=== PATIENT | female | born 2000 | race Two or more races ===

== ENCOUNTER 2025-01-23 04:31 | Emergency (ER) | payer MEDICAID, SELFPAY ==
[2025-01-23 04:38] VITALS: BP 146/91; PULSE 115; RESP 19; TEMP 36.8; O2SAT 95; BMI 37.5
[2025-01-23 04:46] VITALS: BMI 26.5
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
== END 2025-01-23 06:36 ==
PROVIDERS: Emergency Provider Student in an Organized Health Care Education/Training Program
DX: Z02.89 Encounter for other administrative examinations (principal); M54.2 Cervicalgia
CPT/HCPCS: 72125; 99284

== ENCOUNTER 2025-08-02 16:54 | Emergency (ER) | payer MEDICAID, SELFPAY ==
[2025-08-02 16:55] VITALS: BMI 39.6
[2025-08-02 17:11] VITALS: BP 131/82; PULSE 76; RESP 18; TEMP 36.6; O2SAT 99
--- NOTE | 2025-08-02 17:16 | EDRME_ITS ---
Rapid Medical Screening Exam [facility] Arrival date/time: 08/02/25 16:54 25-year-old female with no known medical history presents to the emergency room with a chief complaint of vaginal bleeding. Patient is currently 6 weeks she is a G6, P4. I have greeted and performed a focused initial assessment of this patient. A comprehensive ED assessment and evaluation of the patient, analysis of all test results, and completion of the medical decision making process will be conducted by additional ED providers. Chief Complaint: Vaginal Bleeding Time Seen by Provider: 08/02/25 17:14 Vital signs: Vital Signs Temperature 97.8 F 08/02/25 17:11 Pulse Rate 76 08/02/25 17:11 Respiratory Rate 18 08/02/25 17:11 Blood Pressure 131/82 H 08/02/25 17:11 Pulse Oximetry (%) 99 08/02/25 17:11 Oxygen Delivery Method Room Air 08/02/25 17:11 Vital signs reviewed by provider: Yes Exam: Bilateral tenderness to the lower abdomen Clear bilateral lung sounds Clinical Impression: Threatened /vaginal bleeding/subchorionic hemorrhage
--- NOTE | 2025-08-02 17:16 | XR_ITS ---
Examination: Complete OB ultrasound, less than 14 weeks, transabdominal Date and time of exam: August 02, 2025, 0620 hours INDICATIONS: Heavy vaginal bleeding and cramping onset today Technique: Obstetrical ultrasound images less than 14 weeks performed via transabdominal imaging Findings: Uterus 9.2 cm endometrial stripe 0.4 cm No uterine mass or intrauterine gestation Right ovary 3.2 cm arterial flow Left ovary 2.5 cm arterial flow No fluid in the cul-de-sac Impression: No uterine mass or intrauterine gestation.
[2025-08-02 17:58] LABS: Basophils # (Auto) 0.0 Thou/mm3 (0.0-0.2); Basophils % (Auto) 1 % (0-2.5); Eosinophils # (Auto) 0.1 Thou/mm3 (0.0-0.5); Eosinophils % (Auto) 1 % (0-10); Hematocrit 35.4 % (36.0-46.0); Hemoglobin 11.3 g/dL (12.0-16.0); Immature Granulocytes Auto 0.01 Thou/mm3 (0.00-0.00); Lymphocytes # (Auto) 1.6 Thou/mm3 (1.0-4.8); Lymphocytes % (Auto) 29 % (10-50); Mean Corpuscular HGB Conc 31.9 g/dl (31.0-37.0); Mean Corpuscular Hemoglobin 25.9 pg (25.0-35.0); Mean Corpuscular Volume 81 fL (80-100); Monocytes # (Auto) 0.3 Thou/mm3 (0.0-0.8); Monocytes % (Auto) 6 % (0-12); Neutrophils # (Auto) 3.4 Thou/mm3 (1.8-7.7); Neutrophils % (Auto) 63 % (37-80); Nucleated Red Blood Cell # 0.00 Thou/mm3 (0.00-0.00); Nucleated Red Blood Cell % 0 /100 WBC (0); Platelet Count 259 Thou/mm3 (140-440); RDW Standard Deviation 43.3 fL (36.4-46.3); Red Blood Count 4.36 Miln/mm3 (4.00-5.20); White Blood Count 5.4 Thou/mm3 (3.6-11.0)
[2025-08-02 18:16] LABS: Alanine Aminotransferase 14 U/L (10-49); Albumin, Serum 4.8 gm/dL (3.5-5.0); Albumin/Globulin Ratio 2.2 (1.2-2.2); Alkaline Phosphatase 65 U/L (46-116); Anion Gap 9 (7-16); Aspartate Amino Transferase 14 U/L (0-34); BUN/Creatinine Ratio 12 Ratio (12-20); Beta HCG,Quantitative 264 mIU/mL (<5.0); Bilirubin,Total 0.2 mg/dL (0.3-1.2); Blood Urea Nitrogen 7 mg/dL (9-23); Calcium 9.1 mg/dL (8.3-10.6); Calcium (Corrected) 9.1 mg/dL (8.5-10.1); Carbon Dioxide 24.3 mMol/L (20.0-31.0); Chloride 107 mMol/L (98-107); Creatinine (Component) 0.6 mg/dL (0.6-1.3); Estimated Creatinine Clearance 151.1 mL/min (>60); Globulin 2.2 gm/dL (2.3-3.5); Glucose 101 mg/dL (74-106); Osmolality,Calculated 277 (275-295); Potassium 4.1 mMol/L (3.4-5.1); Sodium 140 mMol/L (136-145); Total Protein 7.0 gm/dL (5.7-8.2); eGFR > 60 See Note
[2025-08-02 18:21] LABS: Collection Type, Urine Clean Catch
[2025-08-02 18:50] LABS: Bilirubin,Urine Negative (Negative); Blood,Urine 3+ (Negative); Clarity,Urine Clear (Clear/Hazy); Color,Urine Lt-Yellow (Lt Yel-Yel); Glucose, Urine Negative (Negative); Ketones,Urine Negative (Negative); Leukocyte Esterase,Urine Positive (Negative); Nitrite,Urine Negative (Negative); PH,Urine 6.5 (5.0-7.0); Protein,Urine Trace (Neg - Trace); RBC,Urine 38 /hpf (0-3); Specific Gravity,Urine 1.018 (1.001-1.035); Squamous Epithelial Cell,Urine 3 /hpf (0-5); Urobilinogen,Urine Negative mg/dL (0.0-1.0); WBC,Urine 7 /hpf (0-5)
--- NOTE | 2025-08-02 19:24 | EDNOTE_ITS ---
ED OB Contraction Preg RMI/HPI General Chief complaint: Vaginal Bleeding Stated complaint: W/BLEEDING & CRAMPING Time Seen by Provider: 08/02/25 17:14 Arrival date/time: 08/02/25 16:54 25-year-old female patient 6 para 4 1 about 6 weeks , came in for evaluation regarding vaginal bleeding with blood clots and pelvic cramping. Onset of symptoms few hours prior to ER visit. Patient has been having vaginal spotting for the last few days. Denies any other complaints have not seen any SOLUTION STRATEGIST for checkup. RME / HPI RME / HPI Narrative: 08/02/25 16:54 25-year-old female with no known medical history presents to the emergency room with a chief complaint of vaginal bleeding. Patient is currently 6 weeks she is a G6, P4. I have greeted and performed a focused initial assessment of this patient. A comprehensive ED assessment and evaluation of the patient, analysis of all test results, and completion of the medical decision making process will be conducted by additional ED providers. Exam: Bilateral tenderness to the lower abdomen Clear bilateral lung sounds Impression: Threatened /vaginal bleeding/subchorionic hemorrhage Related Data Home Medications ?Medication ?Instructions ?Recorded ?Confirmed prenat.vits,angeles,jjl-qcjw-jchmg 1 tab PO QDAY 03/14/24 03/14/24 Previous Rx's ?Medication ?Instructions ?Recorded acetaminophen 500 mg tablet 500 mg PO Q6H PRN pain #14 tabs 01/23/25 Allergies Allergy/AdvReac Type Severity Reaction Status Date / Time No Known Allergies Allergy Verified 08/02/25 16:58 Review of Systems Review of Systems Narrative Review of Systems: Review of system reviewed and within normal limits except mentioned in HPI ED Exam Narrative Physical exam: VITAL SIGNS: Reviewed. GENERAL APPEARANCE: Alert and interactive, follows commands, no acute distress, HEAD AND FACE: Non-traumatic. ENT: PERRL, pink conjunctivitis, eyelid no trauma, Mucous membrane moist. NECK: Supple, nontender, no nuchal rigidity. CHEST: No tenderness, no crepitus, no paradoxical movement, no retractions. LUNGS: Clear, well ventilated, symmetric, no rales, no wheezing, no ronchi, no stridor, good breath sounds bilaterally. HEART: Regular rate, regular rhythm, no murmur, no gallops. ABDOMEN: Soft, positive bowel sounds, nondistended, no guarding, nontender, no rebound, no masses, RECTAL: Deferred. GENITAL: Deferred. NEUROLOGICAL: Gross motor function intact sensory function intact, Appropriate for age. MUSCULOSKELETAL: low back nontender, full range of motion. EXTREMITIES: Nontender, full range of motion. SKIN: Color pink, dry, no rash, no lacerations, no abrasions, no contusions. LYMPHATICS: Deferred. Course Quality Measures none Orders Category Date Time Status US OB <= 14 weeks fetus Stat Exams 08/02/25 17:16 Taken ABO/RH Type Stat Lab 08/02/25 17:32 Completed Beta HCG,Quantitative Stat Lab 08/02/25 17:32 Completed CBC Stat Lab 08/02/25 17:32 Completed CMP [Comprehensive Metabolic Panel] Stat Lab 08/02/25 17:32 Completed UA [Urinalysis] Stat Lab 08/02/25 17:51 Completed Vital Signs Vital signs: Vital Signs Temperature 97.8 F 08/02/25 17:11 Pulse Rate 76 08/02/25 17:11 Respiratory Rate 18 08/02/25 17:11 Blood Pressure 131/82 H 08/02/25 17:11 Pulse Oximetry (%) 99 08/02/25 17:11 Oxygen Delivery Method Room Air 08/02/25 17:11 Vaginal Bleeding MDM Narrative MDM Narrative: 08/02/25 16:54 25-year-old female patient 6 para 4 1 about 6 weeks , came in for evaluation regarding vaginal bleeding with blood clots and pelvic cramping. Onset of symptoms few hours prior to ER visit. Patient has been having vaginal spotting for the last few days. Denies any other complaints have not seen any SOLUTION STRATEGIST for checkup. Patient's workup is significant for a hCG of 265, ultrasound did not show any IUP no abnormality noted. Results discussed with the patient patient is probably having completed . I advised the patient to repeat the hCG in 3 days. Come to the emergency room for the repeat hCG. Patient stable for discharge home. Patient data External records reviewed:: None Clinical information provided by:: none Social determinants that could affect healthcare access:: none Patient has the following chronic illnesses:: None How is presenting disease/condition affected by chronic disease/condition?: no chronic disease Evaluation data The following diagnostics were reviewed and interpreted by me:: lab results and radiology exam(s) Lab and/or radiology exams considered but not ordered:: None Interpretation Summary: See above Medications / Prescriptions Medications or Prescriptions considered but not ordered:: None none Medication administrations:: None Consultations Consultation(s) initiated? (list below): No Diagnosis Vaginal Bleeding Differential Diagnosis: missed , threatened and incomplete Most likely diagnosis given after review of the tests above:: Threatened , 6 weeks Admission Indicated Admission indicated?: not indicated Admission Request Was there a request for admission?: No Disposition Plan Disposition Plan: Discharge Discharge Attestation Discharge Attestation: The patient was given an opportunity to ask questions and understood the discharge instructions. Discharge instructions specifically effects, indications for sooner follow up or return to the emergency department, and the expected course of current diagnosis. Patient condition: Stable Discharge Plan Plan Patient Disposition: HOME (Self Care) Discharge Disposition comment: Stable Prescriptions/Referrals Prescriptions/Med Rec: No Action Vitamin Tablet 1 tab PO QDAY acetaminophen 500 mg tablet 500 mg PO Q6H PRN (Reason: pain) Qty: 14 0RF Referrals: Ankush Boston MD [Primary Care Provider, Family Practice] - In 1 week Problem List Clinical Impression: Vaginal bleeding, Threatened Patient/Caregiver Discharge Instructions Education Materials: ED Possible Miscarriage ... Additional Instructions: Thank you for the opportunity for serving you today. You are stable for discharged . You are advised to: Follow-up with your SOLUTION STRATEGIST in 1 to 2 days Return to ED for worsening of symptoms Increase oral fluids Pelvic rest no sex for 1 week or until cleared by SOLUTION STRATEGIST Return to emergency room in 3 days for repeat hCG Print Language: Angolan Stand Alone Forms: Daphnie Award Info., Patient Portal Info Letter JAGRUTI/SASHA Supervising Physician JAGRUTI/SASHA Supervising Physician: MD Lana
[2025-08-02 19:32] VITALS: BP 139/97; PULSE 98; RESP 18; TEMP 36.7; O2SAT 98
== END 2025-08-02 19:33 | disposition home or self-care (01) ==
PROVIDERS: Nurse Practitioner Family; Emergency Provider Family Medicine; PCP Family Medicine
DX: O20.0 Threatened abortion (principal); Z3A.01 Less than 8 weeks gestation of pregnancy
CPT/HCPCS: 36415; 76801; 80053; 81001; 84702; 85025; 86900; 86901; 99283

== ENCOUNTER 2025-08-05 11:50 | Emergency (ER) | payer MEDICAID, SELFPAY ==
[2025-08-05 12:05] VITALS: BP 135/94; PULSE 97; RESP 19; TEMP 36.7; O2SAT 96
--- NOTE | 2025-08-05 12:08 | EDNOTE_ITS ---
ED General RME/HPI General Chief complaint: General Adult/Misc Complain Stated complaint: RETURNED INST FOR HCG; HAVING MISCARRIAGE Time Seen by Provider: 08/05/25 12:07 Source: patient Arrival date/time: CC: Vaginal bleeding miscarriage HPI patient with threatened miscarriage was told to return today after 3 days. Patient 1 passed a single clot 24 hours ago, has had very mild low center abdominal cramping. Denies nausea vomiting fever chills headache shortness of breath difficulty breathing. Related Data Home Medications ?Medication ?Instructions ?Recorded ?Confirmed prenat.vits,angeles,jtn-qifc-bwwuc 1 tab PO QDAY 03/14/24 03/14/24 Previous Rx's ?Medication ?Instructions ?Recorded acetaminophen 500 mg tablet 500 mg PO Q6H PRN pain #14 tabs 01/23/25 Allergies Allergy/AdvReac Type Severity Reaction Status Date / Time No Known Allergies Allergy Verified 08/05/25 11:52 Review of Systems Review of Systems Narrative Review of Systems: GEN: No fever, no chills, no weight loss EYES: No discharge, no visual changes, no pain HEENT: No ear pain, no congestion, no sore throat PULM: No shortness of breath, no cough, no congestion CV: No chest pain, no dyspnea on exertion, no palpitations GI: No nausea, no vomiting, no diarrhea, no pain, no constipation : No frequency, no urgency, no dysuria MUSC/SKEL: No joint pain, no back pain SKIN: No rash PSYCH: No hallucinations, no depression HEME/LYMPH: No easy bleeding or bruising tendencies NEURO: No weakness, no headache Past Medical History Past Medical History NEUROLOGIC: Positive Migraine CARDIAC: Negative Cardiac Disorders or Congestive Heart Failure RESPIRATORY: Negative Chronic Obstructive Pulmonary Disease (COPD), Asthma or Sleep Apnea GASTROINTESTINAL: Positive Gastrointestinal Disorders and Gall Bladder Disease (gallstones); Negative Hemorrhoids or Gastroesophageal Reflux Disease GENITOURINARY: Negative Renal Disease or Kidney Stones REPRODUCTIVE: Positive Previous Pregnancies (currently with third child); Negative Endometriosis or Pelvic Inflammatory Disease MUSCULOSKELETAL: Negative Musculoskeletal Disorders, Arthritis or Fractures ENDOCRINE: Negative Diabetes Mellitus Type 1, Diabetes Mellitus Type 2 or Hyperthyroidism HEMATOLOGIC: Negative Blood Disorders or Sickle Cell Disease OTHER HISTORY: Positive Blood Transfusions; Negative Blood Transfusion Reaction, Anesthesia Reactions, MRSA, Vancomycin- Resistant Enterococci, Clostridium Difficile or Cancer Family History FAMILY HISTORY: Positive Family Cardiac Disorders (grandfather); Negative Family Psychiatric Problems or Family Respiratory Disorders Surgical History SURGICAL: Positive Section Social History SMOKING STATUS: Never smoker SECOND HAND EXPOSURE: No ED Exam Narrative Physical exam: [General: Obese not in cot no acute distress Head normocephalic HEENT: Within acceptable limits Neck is supple nontender Chest equal chest rise nontender to palpation Respiratory: Clear to auscultation no wheezes crackles or rubs CV: Rate rhythm is regular no murmurs rubs or clicks Abdomen is distended secondary to body habitus soft nontender no masses positive bowel sounds all 4 quadrants Back: No CVA tenderness no spinous process tenderness from cervical spine thora cic and lumbar spine Skin: Intact no petechiae rash induration ulceration or crepitus Extremities: Moving all extremity against resistance cap refill less than 2 seconds neurosensory intact Neuro: Awake alert oriented x3 Glascow coma 15 no focal deficits] Course Quality Measures none Orders Category Date Time Status US OB <= 14 weeks fetus Stat Exams 08/05/25 12:11 Completed Beta HCG,Quantitative Stat Lab 08/05/25 12:39 Completed CBC Stat Lab 08/05/25 12:39 Completed Vital Signs Vital signs: Vital Signs Temperature 98.0 F 08/05/25 12:05 Pulse Rate 97 08/05/25 12:05 Respiratory Rate 19 08/05/25 12:05 Blood Pressure 135/94 H 08/05/25 12:05 Pulse Oximetry (%) 96 08/05/25 12:05 Oxygen Delivery Method Room Air 08/05/25 12:05 Discharge Plan Plan Patient Disposition: HOME (Self Care) Prescriptions/Referrals Prescriptions/Med Rec: No Action Vitamin Tablet 1 tab PO QDAY acetaminophen 500 mg tablet 500 mg PO Q6H PRN (Reason: pain) Qty: 14 0RF Problem List Clinical Impression: Complete miscarriage Patient/Caregiver Discharge Instructions Other Activity Instructions:: Quantitative hCG is at 274 and needs to drop to 0. Ultrasound shows there is no retained products in your uterus. Follow-up in 1 week with your primary care doctor or in the emergency room to recheck the quantitative hCG or human growth hormone. Education Materials: ED MISCARRIAGE Completed Print Language: Urdu Stand Alone Forms: Daphnie Award Info., Work/School Release, Patient Portal Info Letter PA/CLINICAL COURIER Supervising Physician PA/CLINICAL COURIER Supervising Physician: Jose MCDONALD Clinical Information Provided by: patient Medical Records reviewed [facility] Meds/Rx considered, not ordered None Labs/Rad/Tests considered, not ordered None Chronic Illness/Social Conditions which may negatively complicate care or outcome(s)-explain: None or not applicable EKG EKG not done Labs Labs: interpreted by me Lab(s) Interpretation(s): CBC shows a mild and stable anemia of with a hemoglobin of 10.9 and hematocrit of 33.4 no leukocytosis no thrombocytopenia. Quantitative 8 Imaging Imaging interpretation: interpreted by me Imaging Interpretation(s): Ultrasound shows no retained products.
[2025-08-05 12:10] VITALS: BMI 29.9
--- NOTE | 2025-08-05 12:11 | XR_ITS ---
Examination: Complete OB ultrasound, less than 14 weeks, transabdominal Date and time of exam: August 05, 2025, 1225 hours INDICATIONS: Status post miscarriage 3 days ago Technique: Obstetrical ultrasound images less than 14 weeks performed via transabdominal imaging Findings: Uterus 10.4 cm no intrauterine gestation Minimal fluid in the endometrium Endometrial stripe 0.4 cm no retained products Right ovary 3.0 cm arterial flow Left ovary 3.1 cm arterial flow No fluid in the cul-de-sac IMPRESSION: Negative for retained products of conception
[2025-08-05 12:49] LABS: Basophils # (Auto) 0.0 Thou/mm3 (0.0-0.2); Basophils % (Auto) 1 % (0-2.5); Eosinophils # (Auto) 0.1 Thou/mm3 (0.0-0.5); Eosinophils % (Auto) 2 % (0-10); Hematocrit 33.4 % (36.0-46.0); Hemoglobin 10.9 g/dL (12.0-16.0); Immature Granulocytes Auto 0.01 Thou/mm3 (0.00-0.00); Lymphocytes # (Auto) 1.6 Thou/mm3 (1.0-4.8); Lymphocytes % (Auto) 37 % (10-50); Mean Corpuscular HGB Conc 32.6 g/dl (31.0-37.0); Mean Corpuscular Hemoglobin 26.6 pg (25.0-35.0); Mean Corpuscular Volume 82 fL (80-100); Monocytes # (Auto) 0.3 Thou/mm3 (0.0-0.8); Monocytes % (Auto) 6 % (0-12); Neutrophils # (Auto) 2.5 Thou/mm3 (1.8-7.7); Neutrophils % (Auto) 55 % (37-80); Nucleated Red Blood Cell # 0.00 Thou/mm3 (0.00-0.00); Nucleated Red Blood Cell % 0 /100 WBC (0); Platelet Count 214 Thou/mm3 (140-440); RDW Standard Deviation 42.7 fL (36.4-46.3); Red Blood Count 4.10 Miln/mm3 (4.00-5.20); White Blood Count 4.5 Thou/mm3 (3.6-11.0)
[2025-08-05 13:05] LABS: Beta HCG,Quantitative 274 mIU/mL (<5.0)
== END 2025-08-05 13:47 | disposition home or self-care (01) ==
LOC: SERX 13:24
PROVIDERS: Registered Nurse General Practice; Emergency Provider Emergency Medicine; PCP Family Medicine
DX: O03.9 Complete or unspecified spontaneous abortion without complication (principal)
CPT/HCPCS: 36415; 76801; 84702; 85025; 99282

== ENCOUNTER 2025-08-12 17:14 | Emergency (ER) | payer MEDICAID, SELFPAY ==
[2025-08-12 17:14] VITALS: BMI 39.3
[2025-08-12 18:35] VITALS: BP 119/80; PULSE 60; RESP 18; TEMP 36.7; O2SAT 100
--- NOTE | 2025-08-12 19:13 | EDNOTE_ITS ---
ED Recheck Abnl Lab Rx-RME/HPI General Chief Complaint: Recheck/Abnormal Lab/Rx Stated Complaint: HCG recheck Time Seen by Provider: 08/12/25 18:31 Arrival date/time: 08/12/25 17:14 25-year-old female who had spontaneous is reporting for repeat beta-hCG levels. Patient states that she has some bleeding still but no pain no fever chills no nausea or vomiting. Patient's last beta Limitations: no limitations Related Data Home Medications ?Medication ?Instructions ?Recorded ?Confirmed prenat.vits,angeles,aua-ryrt-jkzsy 1 tab PO QDAY 03/14/24 03/14/24 Previous Rx's ?Medication ?Instructions ?Recorded acetaminophen 500 mg tablet 500 mg PO Q6H PRN pain #14 tabs 01/23/25 Allergies Allergy/AdvReac Type Severity Reaction Status Date / Time No Known Allergies Allergy Verified 08/12/25 17:16 Review of Systems Constitutional Constitutional: Denies chills and Denies fever(s) ENT Ears, Nose, Mouth, and Throat: Denies vertigo Cardiovascular Cardiovascular: Denies syncope Gastrointestinal Gastrointestinal: Denies abdominal pain, Denies nausea and Denies vomiting Genitourinary Genitourinary: Reports abnormal vaginal bleeding, Denies dysuria, Denies pelvic pain, Denies urinary incontinence and Denies urinary hesitancy Musculoskeletal Musculoskeletal: Denies arthralgias and Denies back pain Integumentary/Breasts Skin/Breast: Denies sores and Denies wounds Neurologic Neurologic: Denies syncope and Denies vertigo Past Medical History Past Medical History NEUROLOGIC: Positive Migraine CARDIAC: Negative Cardiac Disorders or Congestive Heart Failure RESPIRATORY: Negative Chronic Obstructive Pulmonary Disease (COPD), Asthma or Sleep Apnea GASTROINTESTINAL: Positive Gastrointestinal Disorders and Gall Bladder Disease (gallstones); Negative Hemorrhoids or Gastroesophageal Reflux Disease GENITOURINARY: Negative Renal Disease or Kidney Stones REPRODUCTIVE: Positive Previous Pregnancies (currently with third child); Negative Endometriosis or Pelvic Inflammatory Disease MUSCULOSKELETAL: Negative Musculoskeletal Disorders, Arthritis or Fractures ENDOCRINE: Negative Diabetes Mellitus Type 1, Diabetes Mellitus Type 2 or Hyperthyroidism HEMATOLOGIC: Negative Blood Disorders or Sickle Cell Disease OTHER HISTORY: Positive Blood Transfusions; Negative Blood Transfusion Reaction, Anesthesia Reactions, MRSA, Vancomycin- Resistant Enterococci, Clostridium Difficile or Cancer Family History FAMILY HISTORY: Positive Family Cardiac Disorders (grandfather); Negative Family Psychiatric Problems or Family Respiratory Disorders Surgical History SURGICAL: Positive Section Social History SMOKING STATUS: Never smoker SECOND HAND EXPOSURE: No ED Exam General Limitations: Present no limitations General appearance: Present alert and in no apparent distress Chest Chest inspection: Present normal inspection and symmetric chest wall rise Respiratory Respiratory exam: Present normal lung sounds bilaterally Cardiovascular Cardiovascular exam: Present regular rate, normal rhythm and normal heart sounds Abdominal Exam Abdominal exam: Present soft and normal bowel sounds Back Exam Back exam: Present normal inspection and full ROM Neurological Exam Neurological exam: Present alert, oriented X3 and CN II-XII intact Psychiatric Psychiatric exam: Present normal affect and normal mood Skin Skin exam: Present warm, dry, intact and normal color Course Course Course Narrative: 25-year-old female G6, P4 with incomplete spontaneous . Patient had hCGs of 264 on August 02, 274 on August 05 and today 409 however ultrasound indicates no intrauterine gestation and no evidence of ectopic at this time. Patient reports no pain she is afebrile, nontoxic-appearing and only complains of vaginal bleeding. Spoke with Dr Grover who advised that the patient will need to be closely monitored by OB. While an ectopic is not likely it is possible and therefore. Patient is advised to return to the emergency department immediately if she develops fever or severe pain Quality Measures none Orders Category Date Time Status Beta HCG,Quantitative Stat Lab 08/12/25 19:02 Completed Vital Signs Vital signs: Vital Signs Temperature 98.1 F 08/12/25 18:35 Pulse Rate 60 08/12/25 18:35 Respiratory Rate 18 08/12/25 18:35 Blood Pressure 119/80 08/12/25 18:35 Pulse Oximetry (%) 100 08/12/25 18:35 Oxygen Delivery Method Room Air 08/12/25 18:35 Recheck / Abnormal Lab / Rx Patient data External records reviewed:: None Clinical information provided by:: patient Social determinants that could affect healthcare access:: none Patient has the following chronic illnesses:: none How is presenting disease/condition affected by chronic disease/condition?: no chronic disease Evaluation data The following diagnostics were reviewed and interpreted by me:: lab results Lab and/or radiology exams considered but not ordered:: none Interpretation Summary: hCG is elevated to 409 Medications / Prescriptions Medications or Prescriptions considered but not ordered:: None Medication administrations:: None Consultations Consultation(s) initiated? (list below): Yes Diagnosis Recheck Differential Diagnosis: other (Ectopic , missed ) Most likely diagnosis given after review of the tests above:: Missed Admission Indicated Admission indicated?: not indicated Admission Request Was there a request for admission?: No Disposition Plan Disposition Plan: Discharge Discharge Attestation Discharge Attestation: The patient and all family members were given an opportunity to ask questions and understood the discharge instructions. Discharge instructions specifically effects, indications for sooner follow up or return to the emergency department, and the expected course of current diagnosis. Patient condition: Stable Discharge Plan Plan Patient Disposition: HOME (Self Care) Prescriptions/Referrals Prescriptions/Med Rec: No Action Vitamin Tablet 1 tab PO QDAY acetaminophen 500 mg tablet 500 mg PO Q6H PRN (Reason: pain) Qty: 14 0RF Referrals: [facility] ([facility]),Shonna Oden MD [Physician, ACCOUNT EXECUTIVE METALWORKING] - 08/13/25 No Primary/Family,Physician [Primary Care Provider] - In 1 week Problem List Clinical Impression: Missed Patient/Caregiver Discharge Instructions Discharge Activity: activity as tolerated Education Materials: ED Missed Miscarriage Additional Instructions: Please follow-up with Dr Grover's office tomorrow for follow-up visits. If you develop fever or severe pelvic or abdominal pain return to the emergency department immediately Print Language: Turkmen Stand Alone Forms: Daphnie Award Info., Patient Portal Info Letter
[2025-08-12 19:37] LABS: Beta HCG,Quantitative 409 mIU/mL (<5.0)
== END 2025-08-12 21:21 | disposition home or self-care (01) ==
PROVIDERS: Emergency Provider Physician Assistant
DX: O02.1 Missed abortion (principal)
CPT/HCPCS: 36415; 84702; 99282

== ENCOUNTER 2025-08-16 08:21 | Outpatient (AMB) | payer MEDICAID, SELFPAY ==
[2025-08-16 08:44] VITALS: BP 122/79; PULSE 79; RESP 18; TEMP 36.4; O2SAT 99; BMI 40.3
--- NOTE | 2025-08-16 08:44 | AMB.GYNCLNOT ---
Vital Signs 08/16/25 08:44 Height 1.57 m Height Method Stated Weight 99.337 kg Weight Measurement Method Standing Scale BMI 40.3 BP 122/79 Blood Pressure Source Automatic Cuff Blood Pressure Location Right Upper Arm Position Sitting Respiration 18 Pulse 79 Pulse Source Monitor Temp 97.5 F Temp Source Temporal Artery Scan Pulse Oximetry (%) 99 Oxygen Delivery Method Room Air Allergies/Home Meds Allergies & Medications Allergies No Known Allergies Allergy (Verified 08/16/25 08:46) Intake Visit Data Collection New Patient or Established: Established Patient (seen at [facility] within 3 years) Reason for Visit:: ER FOLLOW UP Seen by Clinical Staff ONLY (RN/MA): No 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: No Do You Feel Safe at Home: Yes Authorities Contacted: N/A PCP or OBGYN visit in last 3 months: No Hx Now: No Are you currently on any form of Control: No Last menstrual period: 06/21/25 Pain Present Currently: Yes Pain Location: Abdomen Pain Scale Used: Nash-Goel/Numerical Pain scale:: 6 Smoking Status Smoking Status: Never smoker Immunizations Flu Vaccine in the Last 12 Months: No Flu Vaccine Exclusion Criteria: No Exclusion Criteria 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 Menstrual regularity: regular Flow: normal Monthly: Yes How many days does period last: 5 Age at menarche: 13 Currently sexually active: Yes 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 1. Little interest or pleasure in doing things: not at all 2. Feeling down, depressed, or hopeless: not at all Total score: 0 PHQ-9 3. Trouble falling or staying asleep, or sleeping too much: Not at all 4. Feeling tired or having little energy: Not at all 5. Poor appetite or overeating: Not at all 6. Feeling bad about yourself - or that you are a failure or have let yourself or your family down: Not at all 7. Trouble concentrating on things, such as reading the newspaper or watching television: Not at all 8. Moving or speaking so slowly that other people could have noticed? - Or the opposite - being so fidgety or restless that you have been moving around a lot more than usual: not at all 9. Thoughts that you would be better off or of hurting yourself in some way: Not at all Total score: 0 If you checked off any problems, how difficult have these problems made it for you to do your work, take care of things at home, or get along with other people?: not difficult at all Source: Developed by Drs. Keven Valenzuela, Radha Quiroga, Jerry Cook and colleagues, with an educational chari from [email or web address]. Depression screen completed yes Social History Living Situation History Marital Status: Lives With: Family Housing: Apartment Housing Other:: pt lives with boyfriend and 2 kids Tobacco History Smoking Status: Never smoker Packs per Day: 0.5 Second Hand Smoke Exposure: No Alcohol History Alcohol Intake: Former Alcohol Intake Frequency: holidays/special occasions only Domestic Abuse History Do You Feel Safe at Home: Yes History of Present Illness HPI Narrative Radha Coffman is a 25-year-old presenting for emergency room follow-up after recent findings consistent with missed . She was seen in the emergency room on August 12, 2025, with findings consistent with missed , and had previous ER visits on August 02 and August 05, 2025. 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 She reports that the bleeding has been ongoing but is not heavier than her normal periods. She continues to have nausea symptoms. Medical History: - Emergency room visits on August 02, 2025, August 05, 2025, and August 12, 2025 Obstetric History: - GPAL: G1 T0 L0 - Recent loss consistent with missed , with serial beta-hCG levels showing initial rise followed by plateau Social History: - Currently unemployed Diagnostic Test Results and Labs: - Serum beta-hCG (08-02-2025): 264 - Serum beta-hCG (08-05-2025): 274 - Pelvic ultrasound (08-05-2025): Uterus 10.4 cm, no intrauterine gestation, endometrial stripe 0.4 cm, no evidence of retained products - Serum beta-hCG (08-12-2025): 409 Exam General General Appearance: alert, in no apparent distress and healthy appearing Head Head exam: atraumatic Neck Neck exam: Present normal inspection and trachea midline Chest Chest inspection: Present normal inspection and symmetric chest wall rise External exam: Present normal external exam; Absent tenderness Neuro Neurological exam: Present oriented X3 Psych Psychiatric exam: Present normal affect and normal mood Office Procedures [facility] LOC & Office Proc's Nursing/Assessment Patient Status: Established Patient OB Clinic Nursing Assessment: Medication Reconciliation, Update PMH in EMR and Vital Signs OB Clinic Coordination of Care: Complex Care and Chronic Disease 1-5, Education Complex Pt/Fam, Lab and Imaging orders, Results/Orders obtained and Staff clarify orders Established Patient Charge Established Patient Point Assignment: 105 Established Patient Point Charge: EP Level 3 (80-115) Assessment & Plan Diagnosis / Problem List (1) Incomplete miscarriage with blood clot: Status: Acute Plan Missed with persistent beta-hCG Assessment: Patient presents for follow-up after ER visits on 08/02, 08/05, and 08/12/2025 with findings consistent with missed . Beta-hCG levels show concerning pattern with initial value of 264 on 08/02, rising to 274 on 08/05, and further increasing to 409 on 08/12. Ultrasound on 08/05 demonstrated uterus measuring 10.4 cm with no intrauterine gestation, endometrial stripe of 0.4 cm, and no evidence of retained products. The discordance between clear ultrasound findings and persistently rising hormone levels raises concern for possible molar , though this diagnosis has not been confirmed. Patient continues to experience nausea and light bleeding that is less than a normal menstrual period. Plan: - Obtain serial beta-hCG quantitative level next Tuesday - Follow-up appointment scheduled for Tuesday to review hormone trend results - Prescribe anti-nausea medication for symptomatic relief - Patient education provided regarding warning signs: return to ER for sudden severe pain in ovaries/sides or vomiting/feeling sick - Further management decisions will be based on hormone trend results, with discussion of molar treatment options if levels continue to rise
== END 2025-08-16 09:47 | disposition home or self-care (01) ==
LOC: HODSOBC 08:21
PROVIDERS: Supervising Provider Obstetrics & Gynecology; Visit Provider Obstetrics & Gynecology
DX: O03.2 Embolism following incomplete spontaneous abortion (principal)
CPT/HCPCS: 99213; G0463

== ENCOUNTER 2025-08-19 22:15 | Inpatient (IN) | payer MEDICAID, SELFPAY ==
[2025-08-19 22:18] VITALS: BMI 38.4
[2025-08-19 22:57] VITALS: BP 137/89; PULSE 94; RESP 20; TEMP 36.8; O2SAT 100
--- NOTE | 2025-08-19 23:14 | PD.EDRME ---
Rapid Medical Screening Exam RME Arrival date/time: 08/19/25 22:15 25-year-old female G1A1 history of recent incomplete returns to the ER with complaint of pelvic pain pain Chief Complaint: Abdominal Pain Time Seen by Provider: 08/19/25 22:19 Vital signs: Vital Signs Temperature 98.3 F 08/19/25 22:57 Pulse Rate 94 08/19/25 22:57 Respiratory Rate 20 08/19/25 22:57 Blood Pressure 137/89 H 08/19/25 22:57 Pulse Oximetry (%) 100 08/19/25 22:57 Oxygen Delivery Method Room Air 08/19/25 22:57 Exam: - Clinical Impression: -
[2025-08-19 23:37] LABS: Basophils # (Auto) 0.0 Thou/mm3 (0.0-0.2); Basophils % (Auto) 0 % (0-2.5); Eosinophils # (Auto) 0.1 Thou/mm3 (0.0-0.5); Eosinophils % (Auto) 1 % (0-10); Hematocrit 32.0 % (36.0-46.0); Hemoglobin 10.1 g/dL (12.0-16.0); Immature Granulocytes Auto 0.03 Thou/mm3 (0.00-0.00); Lymphocytes # (Auto) 1.7 Thou/mm3 (1.0-4.8); Lymphocytes % (Auto) 25 % (10-50); Mean Corpuscular HGB Conc 31.6 g/dl (31.0-37.0); Mean Corpuscular Hemoglobin 25.8 pg (25.0-35.0); Mean Corpuscular Volume 82 fL (80-100); Monocytes # (Auto) 0.3 Thou/mm3 (0.0-0.8); Monocytes % (Auto) 4 % (0-12); Neutrophils # (Auto) 4.9 Thou/mm3 (1.8-7.7); Neutrophils % (Auto) 70 % (37-80); Nucleated Red Blood Cell # 0.00 Thou/mm3 (0.00-0.00); Nucleated Red Blood Cell % 0 /100 WBC (0); Platelet Count 229 Thou/mm3 (140-440); RDW Standard Deviation 43.8 fL (36.4-46.3); Red Blood Count 3.91 Miln/mm3 (4.00-5.20); White Blood Count 7.1 Thou/mm3 (3.6-11.0)
[2025-08-19 23:39] LABS: Collection Type, Urine Clean Catch
[2025-08-19 23:51] LABS: Bilirubin,Urine Negative (Negative); Blood,Urine 3+ (Negative); Clarity,Urine Turbid (Clear/Hazy); Culture Indicated,Urine Not Indicated; Glucose, Urine Negative (Negative); Ketones,Urine 1+ (Negative); Leukocyte Esterase,Urine Negative (Negative); Nitrite,Urine Negative (Negative); PH,Urine 5.5 (5.0-7.0); Protein,Urine 1+ (Neg - Trace); RBC,Urine 791 /hpf (0-3); Specific Gravity,Urine 1.033 (1.001-1.035); Squamous Epithelial Cell,Urine 5 /hpf (0-5); Urobilinogen,Urine Negative mg/dL (0.0-1.0); WBC,Urine 3 /hpf (0-5)
[2025-08-19 23:55] LABS: Alanine Aminotransferase 19 U/L (10-49); Albumin, Serum 4.7 gm/dL (3.5-5.0); Albumin/Globulin Ratio 1.7 (1.2-2.2); Alkaline Phosphatase 57 U/L (46-116); Anion Gap 10 (7-16); Aspartate Amino Transferase 16 U/L (0-34); BUN/Creatinine Ratio 20 Ratio (12-20); Beta HCG,Quantitative 576 mIU/mL (<5.0); Bilirubin,Total 0.2 mg/dL (0.3-1.2); Blood Urea Nitrogen 12 mg/dL (9-23); Calcium 9.1 mg/dL (8.3-10.6); Calcium (Corrected) 9.1 mg/dL (8.5-10.1); Carbon Dioxide 24.8 mMol/L (20.0-31.0); Chloride 107 mMol/L (98-107); Creatinine (Component) 0.6 mg/dL (0.6-1.3); Estimated Creatinine Clearance 154.2 mL/min (>60); Globulin 2.8 gm/dL (2.3-3.5); Glucose 108 mg/dL (74-106); Osmolality,Calculated 283 (275-295); Potassium 3.8 mMol/L (3.4-5.1); Sodium 142 mMol/L (136-145); Total Protein 7.5 gm/dL (5.7-8.2); eGFR > 60 See Note
[2025-08-19 23:56] LABS: Color,Urine Orange (Lt Yel-Yel)
[2025-08-20] VITALS (14 sets, daily range): BP systolic 103–148; BP diastolic 63–86; PULSE 10–103; RESP 14–20; TEMP 36.6–37.1; O2SAT 94–100; BMI 38.4
--- NOTE | 2025-08-20 00:11 | EDNOTE_ITS ---
ED Abdominal Pain RME/HPI General Chief Complaint: Abdominal Pain Stated complaint: MISCARAGE TWO WKS AGO ABD PAIN Time seen by provider: 08/19/25 22:19 Arrival date/time: 08/19/25 22:15 RME / HPI RME / HPI narrative: Dr. 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 She has nausea, no emesis. She reports ongoing urgency and frequency. No dysuria. No fever, but has chills. ovarian cystic disease, no DM or HTN. PSH includes c-sections x4. Related Data Allergies Allergy/AdvReac Type Severity Reaction Status Date / Time No Known Allergies Allergy Verified 08/19/25 22:22 Review of Systems Review of Systems Systems Reviewed: All systems reviewed, normal except as documented Past Medical History Past Medical History NEUROLOGIC: Positive Migraine CARDIAC: Negative Cardiac Disorders or Congestive Heart Failure RESPIRATORY: Negative Chronic Obstructive Pulmonary Disease (COPD), Asthma or Sleep Apnea GASTROINTESTINAL: Positive Gastrointestinal Disorders and Gall Bladder Disease (gallstones); Negative Hemorrhoids or Gastroesophageal Reflux Disease GENITOURINARY: Negative Renal Disease or Kidney Stones REPRODUCTIVE: Positive Previous Pregnancies (currently with third child); Negative Endometriosis or Pelvic Inflammatory Disease MUSCULOSKELETAL: Negative Musculoskeletal Disorders, Arthritis or Fractures ENDOCRINE: Negative Diabetes Mellitus Type 1, Diabetes Mellitus Type 2 or Hyperthyroidism HEMATOLOGIC: Negative Blood Disorders or Sickle Cell Disease OTHER HISTORY: Positive Blood Transfusions; Negative Blood Transfusion Reaction, Anesthesia Reactions, MRSA, Vancomycin- Resistant Enterococci, Clostridium Difficile or Cancer Family History FAMILY HISTORY: Positive Family Cardiac Disorders (grandfather); Negative Family Psychiatric Problems or Family Respiratory Disorders Surgical History SURGICAL: Positive Section Social History SMOKING STATUS: Never smoker SECOND HAND EXPOSURE: No ED Exam Narrative Physical exam: GENERAL APPEARANCE: alert and oriented x 4, well-developed, well-nourished, nontoxic, no acute distress VITALS: All vitals were reviewed and the pulse ox is 100% on room air, which is normal according to my interpretation. HEENT: Normocephalic, atraumatic; pupils equal, round, reactive to light; EOMI; mucous membranes pink, moist; oropharynx clear NECK: Supple LUNGS: CTABL; no wheezes, no rales, no rhonchi HEART: Regular rate, regular rhythm; normal S1, S2; no murmurs ABDOMEN: non distended; soft, RLQ pain with focal tenderness and peritoneal findings EXTREMITIES: atraumatic; no edema NEUROLOGIC: awake; alert and oriented x4; cranial nerves II-XII grossly intact; no focal sensory or motor deficits PSYCHIATRIC: appropriate mood and affect SKIN: warm, dry, normal color; no rashes Course Quality Measures none Orders Category Date Time Status Admit to Inpatient Status Routine Admission 08/20/25 06:05 Active US OB transvaginal Stat Exams 08/20/25 00:28 Taken Beta HCG,Quantitative Stat Lab 08/19/25 23:20 Completed CBC Stat Lab 08/19/25 23:20 Completed CMP [Comprehensive Metabolic Panel] Stat Lab 08/19/25 23:20 Completed UA, C/S IF [Urinalysis, C/S if Indicated] Stat Lab 08/19/25 23:32 Completed Acetaminophen Tab [Tylenol Tab] Med 08/20/25 00:23 Discontinued 650 mg PO X1 ONE Morphine* Inj Med 08/20/25 05:05 Discontinued 4 mg IVP X1 ONE Vital Signs Vital signs: Vital Signs Temperature 98.3 F 08/19/25 22:57 Pulse Rate 94 08/19/25 22:57 Respiratory Rate 20 08/19/25 22:57 Blood Pressure 137/89 H 08/19/25 22:57 Pulse Oximetry (%) 100 08/19/25 22:57 Oxygen Delivery Method Room Air 08/19/25 22:57 Abdominal Pain MDM MDM Narrative MDM Narrative:: Scribe Attestation: 08/20/25 - Avril Scott am scribing for and in the presence of Dr. Hawkins. 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 She has nausea, no emesis. Please see PE findings. Lab markers demonstrate CBC and chemistries are unremarkable. HCG continues to rise and is currently at 576. Pelvis US demonstrates a complex left ovarian cyst with small amount of fluid in the pelvis. Patient received incremental doses of narcotic analgesics for pain control. Case was discussed at length with Dr. Aleman, INFECTION PREVENTION SPECIALIST, who agrees to admit the patient for observation. Dx: complex left ovarian cyst with rupture, r/o ectopic Patient data External records reviewed:: [facility] previous records (Per chart review, patient was seen here on 08/12/25 for missed .) Clinical information provided by:: patient Social determinants that could affect healthcare access:: none Patient has the following chronic illnesses:: none How is presenting disease/condition affected by chronic disease/condition?: no chronic disease Evaluation data The following diagnostics were reviewed and interpreted by me:: lab results and radiology exam(s) Lab and/or radiology exams considered but not ordered:: none Interpretation Summary: Telerad Preliminary Report Draft Patient: MAK SHAVER Record#: [id number] Birthdate: 2000 Age/Sex: 25 / F Location: [facility] Attending Dr: Ordering Physician: Date of Service: Procedure(s): Accession Number(s): cc: ~ Pelvic ultrasound (transvaginal). August 20, 2025 0150 hours Clinical history: Rule out ectopic . No prior study is available for comparison. Findings: The uterus is normal in size measuring 8.4 x 4.2 x 3.8 cm. The endometrial stripe measures 3 mm. No intrauterine gestational sac is seen at this time. The right ovary is not visualized. The left ovary measures 4.6 x 3.7 x 3.9 cm and demonstrates a 4.4 x 3.6 x 3.7 cm complex cyst with septations. The left ovary demonstrates color flow and spectral waveforms on Doppler evaluation. A small amount of free fluid is seen in the left adnexa. Impression: No evidence of intrauterine gestation at this time. Possibilities include very early intrauterine , recent or occult ectopic gestation. Recommend correlation with serum beta hCG and follow up. Left ovarian complex cystic lesion. Recommend follow-up. Report Electronically Signed By: Christiano Ochoa 08/20/2025 2:29:38 AM Medications / Prescriptions Medications or Prescriptions considered but not ordered:: none Medication administrations:: Medication Administration History Discontinued Medications Acetaminophen (Acetaminophen 325 Mg Tablet) 650 mg PO X1 ONE Stop: 08/20/25 00:24 Last Admin: 08/20/25 00:52 Dose: 650 mg Documented By: JOSE Morphine Sulfate (Morphine Sulf Inj 4 Mg/Ml Vial) 4 mg IVP X1 ONE Stop: 08/20/25 05:06 Last Admin: 08/20/25 06:09 Dose: 4 mg Documented By: SE see above Consultations Consultation(s) initiated? (list below): Yes Diagnosis Differential diagnosis abdominal pain: other (missed , ectopic , pelvic pain) Most likely diagnosis given after review of the tests above:: see clinical impression below Admission Indicated Admission indicated?: indicated Admission Request Was there a request for admission?: Yes Admission Attestation Admission request attestation: Discussed case with [] from Hospitalist service regarding admission. Discussed patients ED course, exam findings, labs, and radiology results. The Hospitalist [agrees,declines] to accept the patient for admission. Disposition Plan Disposition Plan: Admit Discharge Plan Plan Patient Disposition: Admit Acute Care w/in Hospital Prescriptions/Referrals Referrals: Ankush Boston MD [Primary Care Provider, Family Practice] - In 1 week Problem List Clinical Impression: Complex cyst of left ovary Patient/Caregiver Discharge Instructions Print Language: Ukrainian Stand Alone Forms: Daphnie Award Info., Patient Portal Info Letter
--- NOTE | 2025-08-20 00:28 | XR_ITS ---
Examination: OB Transvaginal ultrasound of the pelvis, complete Technique: Transvaginal sonographic images pelvis performed using richardson scale imaging Exam date and time: August 20, 2025, 0150 hours INDICATIONS: Severe pelvic pain beginning several hours ago FINDINGS: Uterus 8.4 cm endometrial stripe 0.3 cm No uterine mass or intrauterine gestation Right ovary obscured by bowel gas Left ovary 4.6 cm arterial flow, 4.4 x 3.6 x 3.7 cm septated cystic mass with internal echoes left ovary and fluid adjacent to the left ovary IMPRESSION: No intrauterine gestation Septated cystic mass in the left adnexal region with internal echoes, differential would include complex left adnexal cyst, ectopic in the appropriate clinical setting, clinical correlation advised and follow-up recommended.
[2025-08-20] MEDS: ACETAMINOPHEN 325 MG TABLET 650 MG PO (00:52)
--- NOTE | 2025-08-20 02:30 | PRELIM_ITS ---
Pelvic ultrasound (transvaginal). August 20, 2025 0150 hours Clinical history: Rule out ectopic . No prior study is available for comparison. Findings: The uterus is normal in size measuring 8.4 x 4.2 x 3.8 cm. The endometrial stripe measures 3 mm. No intrauterine gestational sac is seen at this time. The right ovary is not visualized. The left ovary measures 4.6 x 3.7 x 3.9 cm and demonstrates a 4.4 x 3.6 x 3.7 cm complex cyst with septations. The left ovary demonstrates color flow and spectral waveforms on Doppler evaluation. A small amount of free fluid is seen in the left adnexa. Impression: No evidence of intrauterine gestation at this time. Possibilities include very early intrauterine , recent or occult ectopic gestation. Recommend correlation with serum beta hCG and follow up. Left ovarian complex cystic lesion. Recommend follow-up. Report Electronically Signed By: Christiano Ochoa 08/20/2025 2:29:38 AM [EST]
[2025-08-20] MEDS: MORPHINE SULF INJ 4 MG/ML VIAL IVP (06:09)
--- NOTE | 2025-08-20 07:46 | PC.NURSE ---
Patient to er with c/o vaginal bleeding x 2 weeks, s/p misscarraige. Patient admitted to ob awaiting bed on floor. Currently, patient denies pain, states, she is only spotting at this time. Patient , skin warm dry and pink. patient has no other needs at this time, call light within reach.
--- NOTE | 2025-08-20 09:06 | PC.NURSE ---
Dr. Grover at bedside consuting with patient regarding procedure.
--- NOTE | 2025-08-20 11:47 | PD.GYNHP ---
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 She has abnormally increasing quantitative hCGs and has had several labs drawn through the [facility] ER. On 08/02/25, the patient's quant was 264, on 08/05/25 it was 274, on 08/12/2025 it was 409, on 08/19/2025 it is 576. The patient was seen by Dr. Zhu in clinic 08/16/2025, and he ordered a repeat quantitative hCG. He was assuming this was a missed miscarriage. Today, the patient is having more pain and and ultrasound reveals some free fluid in her abdomen with some type of complex mass in her left adnexa measuring approximately 4.4 x 3.6 x 3.7 cm. Her hemoglobin is stable at 10.1. As patient is having increasing abdominal pain, now with free fluid in her abdomen, and some type of complex mass near her left adnexa, the decision is made to proceed with laparoscopy, possible unilateral salpingoectomy versus ovarian cystectomy. Possible laparotomy. Patient is consented for the procedure Review of Systems Review of Systems Narrative Review of Systems: Patient reports her LMP was 06/21/2025. Her test was + 07/23/2025 She has been having abnormal bleeding since 08/02/2025. She has had increasing abdominal pain starting last evening about 9 PM. No vomiting. She still has some vaginal bleeding but it is not heavy. No fevers or chills. Past Medical History Past Medical History Comments [facility] COMMENT: The patient denies any chronic medical problems including asthma, diabetes, or hypertension The patient's past surgical history is significant for x 4. Her first was for arrest of dilation. She has a 9-year-old, 4-year-old, a 2-year-old, and a 1-year-old at home. All pregnancies were complicated by hyperemesis and multiple trips to the emergency room. Patient has a history of miscarriage x 1 with a D&C. This is the only time she has been under general anesthesia. Her blood type is O+. Meds Home Medications and Allergies Allergies Allergy/AdvReac Type Severity Reaction Status Date / Time No Known Allergies Allergy Verified 08/19/25 22:22 Exam - SUPERVISOR FRAME SAMPLE AND PATTERN Vital Signs Temp Pulse Resp BP Pulse Ox O2 Del Method 98.5 F 77 16 103/65 98 Room Air 08/20/25 08:10 08/20/25 08:10 08/20/25 08:10 08/20/25 08:10 08/20/25 08:10 08/20/25 08:10 Constitutional Constitutional: mild distress, obese and cooperative Routine Respiratory Exam Respiratory: Present chest non-tender, lungs clear, normal breath sounds and no resp distress Routine Cardiovascular Exam Cardiovascular: Present RRR Routine Abdominal Exam Abdominal: Present soft, normoactive bowel sounds and surgical scars (Well-healed Pfannenstiel scar) Routine Skin Exam Skin: Present intact and dry Routine Psychiatric Exam Psychiatric: Present normal affect and normal thought process SUPERVISOR FRAME SAMPLE AND PATTERN - Results Labs 08/19/25 23:20 08/19/25 23:20 Labs: Short CBC 08/19/25 Range/Units 23:20 WBC 7.1 (3.6-11.0) Thou/mm3 Hgb 10.1 L (12.0-16.0) g/dL Hct 32.0 L (36.0-46.0) % Plt Count 229 (140-440) Thou/mm3 BMP 08/19/25 23:20 Sodium 142 Potassium 3.8 Chloride 107 Carbon Dioxide 24.8 BUN 12 Creatinine 0.6 Glucose 108 H Calcium 9.1 Liver Function 08/19/25 Range/Units 23:20 Total Bilirubin 0.2 L (0.3-1.2) mg/dL AST 16 (0-34) U/L ALT 19 (10-49) U/L Alkaline Phosphatase 57 (46-116) U/L Albumin 4.7 (3.5-5.0) gm/dL Urine 08/19/25 Range/Units 23:32 Urine Color Williams A (Lt Yel-Yel) Urine Clarity Turbid A (Clear/Hazy) Urine pH 5.5 (5.0-7.0) Ur Specific [place] 1.033 (1.001-1.035) Urine Protein 1+ A (Neg - Trace) Urine Glucose (UA) Negative (Negative) Imaging and Cardiology US - abdomen: Status: image reviewed by me (Free fluid in the pelvis. No intrauterine . Complex approximately 4 x 3 cm adnexal mass left adnexa.) Assessment and Plan Assessment and plan (1) Complex cyst of left ovary: Status: Acute (2) Ectopic : Status: Acute Assessment and plan: Patient is having increasing abdominal pain. She now has free fluid in her pelvis. She is consented for laparoscopy, possible unilateral ovarian cystectomy possible unilateral salpingectomy, possible laparotomy. The risks of the procedure discussed patient the ER including the risk of bleeding, infection, blood transfusion, damage to bowel, bladder, blood vessels, or other organs. Laparotomy and prolonged hospital stay should any complications occur. All questions were answered all consents were signed. Additional Assessment & Plan Additional Plan: SCDs in OR. Quality Measures Quality Measures none (2) Ectopic Qualifiers: Location of ectopic : unspecified location Intrauterine status: without intrauterine Qualified Code(s): O00.90 - Unspecified ectopic without intrauterine
--- NOTE | 2025-08-20 14:24 | EVENTNT_ITS ---
Documentation for date of: 08/20/25 Event Note Event Note: Immediate postop note: Preop diagnosis abnormal quantitative hCGs, suspected ectopic , left ovarian cyst Postop diagnosis: Right ectopic , simple left ovarian cyst multiple pelvic adhesions Indication: Patient is a 25-year-old -0-1-4 history of x 4 with abnormally increasing quantitative hCGs and pelvic pain. Patient had some free fluid on ultrasound and a left ovarian cyst. She was consented for a diagnostic laparoscopy possible ovarian cystectomy possible unilateral salpingectomy Findings: Right ectopic with blood extruding from the tube, approximately 30 cc of blood in her pelvis Multiple pelvic adhesions with filmy adhesions around her ovaries. Uterus adhesed to anterior abdominal wall. Multiple omental adhesions. Left fallopian tube with normal-appearing fimbria however with multiple filmy adhesions and wrapped around a simple left ovarian cyst. Procedure: Diagnostic laparoscopy, right cyst salpingectomy, drainage of left ovarian cyst IV fluids 1.5 L Urine output 25 cc EBL 40 cc Anesthesiologist: Dr. Faye Requisition Approver Murphy VELASCO Complications none. Full op report to be dictated Mariela Grover MD
[2025-08-20] MEDS: fentaNYL CIT INJ 50 mCg/ML AMP 2ML IVP (14:41)
--- NOTE | 2025-08-20 15:49 | SUR.PHASEI ---
Addendum entered by Marcelina Fountain RN 08/20/25 15:59: Note entered at 1414 hr entered in error. Time should reflect 1514 hr. Original Note: 1426: Pt received in [facility] via gurney. Report from Elke AYON and Dr. Faye. Oral airway in place. Resp even, unlabored. VS stable. Surgical sites x3 to abdomen secured with dermabond. Areas dry, clean, intact. No swelling, discoloration. No vaginal bleeding. 1430: Oral airway dc'd. Resp even, unlabored. 1441: Pt awake with c/o pain to abdomen. Rates pain level 10/10. Resp even, unlabored. VS stable. Pain medication given per anesthesia order. 1455: Pt resting with no further complaints of pain. Rates pain level 3/10. Resp even, unlabored. VS stable. Surgical sites remain dry, clean, intact. No vaginal bleeding. 1414: Report to Rhianna AYON, 3rd floor. Pt transferred to [facility] in stable condition.
--- NOTE | 2025-08-20 16:11 | ESOP_ITS ---
Operative Note - SAP INTEGRATION ARCHITECT Procedure Date of procedure: 08/20/25 Procedure Performed: Diagnostic laparoscopy, lysis of adhesions, right salpingectomy, drainage of left ovarian cyst Indication: The patient is a 25-year-old -0-1-4 with abnormally rising quantitative hCGs. She has had several trips into the emergency room for repeat quantitative hCGs. She had a quant 08/12/2025 that was 409 and most recently 08/19/2025 it was 576. Ultrasound on this admission revealed free fluid in her pelvis and a complex mass around her left ovary measuring approximately 4.4 x 3.6 x 3.7 cm. She has had increasing pelvic pain this admission. She has a history of C- section x 4. She was consented for a diagnostic laparoscopy possible unilateral ovarian cystectomy possible unilateral salpingectomy for a suspected ectopic . Pre-Op diagnosis: 1. Abnormally rising quantitative hCGs, suspected ectopic 2. Free fluid in the pelvis 3. Increasing abdominal pain 4. Left ovarian cyst on ultrasound 5. Previous x 4 Post-Op diagnosis: Same and nonruptured right ectopic Anesthesia type: General Procedure description: After obtaining informed consent, the patient was brought back to the operating room and general anesthesia administered. She was then prepped and draped in the dorsal lithotomy position using Saul stirrups in a normal sterile fashion. The patient's bladder was emptied with an in and out catheter. The patient was given 2 g of Ancef intravenously by anesthesia. A speculum was then inserted into the patient's vagina and a hulka uterine manipulator inserted. The surgeons gloves were changed and attention was turned to the patient's abdomen where a 5 mm incision was made in her periumbilical fold. A long Veress needle was introduced and correct intra-abdominal placement confirmed via the water drop test. The abdomen was allowed to insufflate with 3 L of CO2 gas. A 5 mm trocar and sleeve were introduced with with a 5 mm camera through the umbilical incision. Correct intra-abdominal placement was visually confirmed. A a 10 mm incision was made in her right her left lower quadrant and a 10 mm trocar and sleeve introduced under direct visualization. A 5 mm incision was made in her right lower quadrant and a 5 mm trocar and sleeve introduced under direct visualization. A blunt probe was placed through one of the instrument ports and pictures taken of the above findings. Of note patient had multiple omental adhesions around her instrument port placements that were not involving bowel. A K[place] irrigation device was placed through one of the instrument ports and the pelvis copious irrigated with normal saline. All blood was removed from the pelvis. Some of the omental adhesions were taken down using an Enseal bipolar electrosurgical instrument. A dense adhesion of the fundus of the uterus to the anterior abdominal wall was also taken down using the Enseal. The uterine cavity was not entered. An atraumatic grasper was placed through the right lower quadrant incision and the fallopian tube elevated at the fimbriated end. The tube was found to be densely adhered to the ovary and the ectopic was located in the middle portion of the tube. Care was taken to avoid the ri ght ureter. The right fallopian tube was elevated with an atraumatic grasper and followed its fimbriated end. The Enseal bipolar electrosurgical instrument was used to cauterize from the end of the fallopian tube all the way to the cornual region by serially cauterizing and cutting the fallopian tube under the meso salpinx. The entire fallopian tube was removed. The site of removal and the right ovary was noted to be hemostatic. The pelvis was copiously irrigated again with the [place] irrigation device and the right adnexal region noted be hemostatic. The left ovarian cyst was then ruptured by placing a needle laparoscopic drainage device through the left lower quadrant port and clear straw-colored fluid was drained. The pelvis was copious irrigated one more time. Surgicel hemostatic powder was placed through the right lower quadrant incision on the right adnexal area where the fallopian tube had been removed. Excellent hemostasis was noted. Pictures were taken of the post salpingectomy findings. All instrumentation was removed the patient's abdomen the CO2 gas allowed to resolve. The left lower quadrant fascia was closed with 1 [id number]-[id number] suture of 0 Vicryl. The skin incisions were all closed using subcuticular sutures of 4-0 Monocryl. All instrumentation was removed the patient's vagina and the tenaculum site noted be hemostatic. The patient tolerated the procedure well, sponge, lap, needle, and instrument counts were correct x 2. The patient went to the recovery awake and in stable condition. Pathology was right fallopian tube containing ectopic . Fluids: crystalloid Fluid amount (mL): 1,500 Urine output (mL): 25 Specimen: right tube Implants: None Estimated blood loss (ml): 40 Findings: Multiple adhesions around her pelvis. Filmy adhesions around her left and right fallopian tube. Left fallopian tube wrapped around a simple left ovarian cyst with filmy adhesions. Right ectopic with blood extruding from end of the tube. Not ruptured. Right fallopian tube adhesed to her right ovary. Otherwise normal right ovary. Approximately 40 cc of blood in her pelvis with some clots. Uterine adhesion of her anterior abdominal wall. Omental adhesions around a large part of her pelvis. Adhesions of her lower uterine segment to her bladder. No discrete endometriosis implants seen Complications: none Surgical staff Operation Date: 08/20/25 14:15 Case Staff Anesthesiologist: Chacho Faye RNbrand strategist: Murphy Christie Diagnosis Discharge Diagnosis (1) Ectopic : Status: Acute Problem details: Status post laparoscopic right salpingectomy. Problem List Completed Was Problem List Reviewed/Reconciled?: Yes (1) Ectopic Qualifiers: Location of ectopic : unspecified location Intrauterine status: without intrauterine Qualified Code(s): O00.90 - Unspecified ectopic without intrauterine
[2025-08-20] MEDS: RINGERS LACTATED 1000 ML 1,000 ML 125 ML IV (16:27)
[2025-08-20] MEDS: HYDROmorphone INJ 2 MG/ML VIAL IVP (16:28)
[2025-08-20] MEDS: ONDANSETRON INJ 2 MG/ML INJ 2 ML 4 MG IVP (17:41)
[2025-08-20] MEDS: KETOROLAC INJ 30 MG/ML VIAL IVP (19:08)
[2025-08-20] MEDS: HYDROcodone/APAP 5/325 TABLET 2 TAB PO (23:36)
[2025-08-21] VITALS (7 sets, daily range): BP systolic 92–122; BP diastolic 57–82; PULSE 62–106; RESP 15–18; TEMP 36.2–36.7; O2SAT 95–100
[2025-08-21] MEDS: RINGERS LACTATED 1000 ML 1,000 ML 125 ML IV ×3 (00:33→16:47)
[2025-08-21] MEDS: HYDROmorphone INJ 2 MG/ML VIAL IVP ×3 (00:41→19:45)
[2025-08-21 06:15] LABS: Basophils # (Auto) 0.0 Thou/mm3 (0.0-0.2); Basophils % (Auto) 0 % (0-2.5); Eosinophils # (Auto) 0.0 Thou/mm3 (0.0-0.5); Eosinophils % (Auto) 0 % (0-10); Hematocrit 29.3 % (36.0-46.0); Hemoglobin 9.2 g/dL (12.0-16.0); Immature Granulocytes Auto 0.01 Thou/mm3 (0.00-0.00); Lymphocytes # (Auto) 0.6 Thou/mm3 (1.0-4.8); Lymphocytes % (Auto) 12 % (10-50); Mean Corpuscular HGB Conc 31.4 g/dl (31.0-37.0); Mean Corpuscular Hemoglobin 25.6 pg (25.0-35.0); Mean Corpuscular Volume 82 fL (80-100); Monocytes # (Auto) 0.4 Thou/mm3 (0.0-0.8); Monocytes % (Auto) 7 % (0-12); Neutrophils # (Auto) 4.0 Thou/mm3 (1.8-7.7); Neutrophils % (Auto) 81 % (37-80); Nucleated Red Blood Cell # 0.00 Thou/mm3 (0.00-0.00); Nucleated Red Blood Cell % 0 /100 WBC (0); Platelet Count 211 Thou/mm3 (140-440); RDW Standard Deviation 43.1 fL (36.4-46.3); Red Blood Count 3.59 Miln/mm3 (4.00-5.20); White Blood Count 5.0 Thou/mm3 (3.6-11.0)
[2025-08-21] MEDS: HYDROcodone/APAP 5/325 TABLET 2 TAB PO (14:05)
--- NOTE | 2025-08-21 16:09 | PD.GYNDS ---
Planned Discharge Date 08/21/25 DS: Providers Provider Date of admission: 08/20/25 06:06 Primary care physician: Ankush Boston MD Admitting Provider: Aidee Aleman MD Attending Provider on Admission: Aidee Aleman MD Attending Provider on DC: Aidee Aleman MD Discharging Provider: Aidee Aleman MD DS: Diagnosis Discharge Diagnosis (1) Ectopic : Status: Acute (2) Complex cyst of left ovary: Status: Acute (3) Pelvic peritoneal adhesions: Status: Acute Problem List Completed Was Problem List Reviewed/Reconciled?: Yes Hospital Course Hospital Course Hospital course: The patient is a 25-year-old -0-1-4 who presented to the ER with increasing abdominal pain. She has abnormally increasing quantitative hCGs and has had several labs drawn through the [facility] ER. On 08/02/25, the patient's quant was 264, on 08/05/25 it was 274, on 08/12/2025 it was 409, on 08/19/2025 it is 576. The patient was seen by Dr. Zhu in clinic 08/16/2025, and he ordered a repeat quantitative hCG. He was assuming this was a missed miscarriage. Today, the patient is having more pain and and ultrasound reveals some free fluid in her abdomen with some type of complex mass in her left adnexa measuring approximately 4.4 x 3.6 x 3.7 cm. Her hemoglobin is stable at 10.1. As patient is having increasing abdominal pain, now with free fluid in her abdomen, and some type of complex mass near her left adnexa, the decision is made to proceed with laparoscopy, possible unilateral salpingoectomy versus ovarian cystectomy. Possible laparotomy. Patient is consented for the procedure/ She underwent laparoscopic lysis of adhesions and R salpingectomy for R ectopic on 08/20/2025 Time spent discussing smoking cessation with patient: more than 10 minutes Status at Discharge Cognitive/behavioral status at discharge: Reviewed all 14 point review of systems and all is negative except as noted/ she c/o pain on her left lower quadrant still and is not wanting to go home today and would like to go home in am She has been taking iv pain medication Overall status at discharge: other (patient has passed gas and is voiding spontaneously / she however is not having good pain control and still rates pain at 8/10 in LLQarea. 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 Vital Signs Temp Pulse Resp BP Pulse Ox O2 Del Method O2 Flow Rate 98.1 F 76 15 112/73 96 Room Air 2 08/21/25 15:17 08/21/25 15:17 08/21/25 15:17 08/21/25 15:17 08/21/25 15:17 08/21/25 15:17 08/20/25 15:10 Narrative Exam alertx 3 chest clear CVS RRR abdomen soft / minimally tender near the incisions BS present Discharge Plan Plan Patient Disposition: HOME (Self Care) Disposition Comment: can go home in am on oral pain medications and reglan and doxycycline Health Concerns: <del>patient</del> <del>counselled</del> <del>on</del> <del>not</del> <del>getting</del> <del></del> <del>again</del> <del>,</del> <del>she</del> <del>has</del> <del>a</del> <del>high</del> <del>risk</del> <del>of</del> <del>ectopic</del> <del></del> <del>in</del> <del>the</del> <del>remaining</del> <del>left</del> <del>tube</del> Prescriptions/Referrals Prescriptions/Med Rec: New hydrocodone-acetaminophen 5-325 mg tablet 1 tab PO Q8H MDD 3 Qty: 10 0RF ibuprofen 600 mg tablet 600 mg PO Q8H PRN (Reason: pain) Qty: 30 0RF doxycycline hyclate 100 mg tablet 100 mg PO BID 7 Days Qty: 14 0RF Referrals: Ankush Boston MD [Primary Care Provider, Family Practice] Patient/Caregiver Discharge Instructions Discharge Activity: activity as tolerated Other Discharge Activity Instructions:: pelvic rest x 2 weeks / contraception counselling / follow up at [facility] in 2 weeks Other Discharge Diet Instructions: regular from am clears tonight Education Materials: Abdominal Pain, Ectopic , AVM: Recovering from Surgery Print Language: Tamazight Stand Alone Forms: Daphnie Award Info., Patient Portal Info Letter Discharge Order Discharge Orders: Discharge (Routine); Ordered 08/21/25 Ordered By: Aidee Aleman (1) Ectopic Qualifiers: Intrauterine status: without intrauterine Location of ectopic : unspecified location Qualified Code(s): O00.90 - Unspecified ectopic without intrauterine
[2025-08-22] VITALS: BP 121/68; PULSE 104; RESP 17; TEMP 36.7; O2SAT 94
[2025-08-22] MEDS: HYDROcodone/APAP 5/325 TABLET 2 TAB PO ×2 (00:12→08:29)
[2025-08-22] MEDS: RINGERS LACTATED 1000 ML 1,000 ML 125 ML IV ×2 (00:52→08:29)
[2025-08-22 04:00] VITALS: BP 111/76; PULSE 84; RESP 18; TEMP 36.3; O2SAT 97
[2025-08-22 08:00] VITALS: BP 128/79; PULSE 81; RESP 16; TEMP 36.3; O2SAT 96
--- NOTE | 2025-08-22 09:51 | PD.GYNPROG ---
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 She has abnormally increasing quantitative hCGs and has had several labs drawn through the [facility] ER. On 08/02/25, the patient's quant was 264, on 08/05/25 it was 274, on 08/12/2025 it was 409, on 08/19/2025 it is 576. The patient was seen by Dr. Zhu in clinic 08/16/2025, and he ordered a repeat quantitative hCG. He was assuming this was a missed miscarriage. Today, the patient is having more pain and and ultrasound reveals some free fluid in her abdomen with some type of complex mass in her left adnexa measuring approximately 4.4 x 3.6 x 3.7 cm. Her hemoglobin is stable at 10.1. As patient is having increasing abdominal pain, now with free fluid in her abdomen, and some type of complex mass near her left adnexa, the decision is made to proceed with laparoscopy, possible unilateral salpingoectomy versus ovarian cystectomy. Possible laparotomy. Patient is consented for the procedure/ She underwent laparoscopic lysis of adhesions and R salpingectomy for R ectopic on 08/20/2025 I rounded the patient approximately 8:00 in the morning on postoperative day #2, patient is resting comfortably in bed. She states that she has passed flatus she is ambulating she passed 1 clot the size of a nickel. She is voiding. No fevers no chills. She is ready for discharge. Subjective: patient reports feeling better, patient desires discharge and patient is tolerating oral intake Exam Vital Signs Temp Pulse Resp BP Pulse Ox O2 Del Method O2 Flow Rate 97.4 F 81 16 128/79 96 Room Air 2 08/22/25 08:00 08/22/25 08:00 08/22/25 08:00 08/22/25 08:00 08/22/25 08:00 08/22/25 08:00 08/20/25 15:10 Narrative Exam Patient is alert and oriented x 3 in no apparent distress abdomen is soft slightly distended incisions clean dry intact no rebound no guarding. Extremities show no significant edema or erythema All laparoscopic incisions are healing nicely. Urinary Catheter Management Cath placed during this visit: no PRIVATE BRANCH EXCHANGE INSTALLER - PN: Obj Data Labs 08/21/25 05:00 08/19/25 23:20 PRIVATE BRANCH EXCHANGE INSTALLER - A/P Assessment and plan (1) Ectopic : Problem details: Patient is postop day 2 status post laparoscopic salpingectomy okay to discharge home. Discharge instructions given. Follow-up in the [facility] OB clinic 09/02 or 09/[address] Grover. Status: Acute (2) Complex cyst of left ovary: Problem details: Patient status post drainage of left ovarian cyst. Status: Acute (3) Pelvic peritoneal adhesions: Problem details: Some adhesions were taken down during surgery. Status: Acute Postoperative Procedures: Procedures Operation Date: 08/20/25 14:15 Actual Procedure Side Surgeon p Diagnostic Laparoscopy, Right Salpingectomy, drainage of Left Ovarian Cyst Shonna Grover (OB Clinic), Postoperative day: 2 Postoperative status: doing well Postoperative plan: discharge Time Spent With Patient Time: Total time spent is greater than 50% in coordination of care (as documented) at patient's floor/unit and/or counseling patient: Time with patient: less than 15 minutes
--- NOTE | 2025-08-22 09:56 | PD.GYNDS ---
Planned Discharge Date 08/22/25 DS: Providers Provider Date of admission: 08/20/25 06:06 Primary care physician: Ankush Boston MD Admitting Provider: Aidee Aleman MD Attending Provider on Admission: Aidee Aleman MD Attending Provider on DC: Sh[facility] ([facility]) Discharging Provider: Shonna Grover MD ([facility]) Anticipated date of discharge: 08/22/25 DS: Diagnosis Discharge Diagnosis (1) Pelvic peritoneal adhesions: Status: Acute (2) Ectopic : Status: Acute Assessment & Plan: Patient is postop day #2 status post laparoscopic right salpingectomy and drainage of simple left ovarian cyst. Discharge instructions given. Follow-up in 2 weeks in the office. (3) Complex cyst of left ovary: Status: Acute Problem List Completed Was Problem List Reviewed/Reconciled?: Yes Hospital Course Hospital Course Hospital course: The patient is a 25-year-old -0-1-4 who presented to the ER with increasing abdominal pain. She has abnormally increasing quantitative hCGs and has had several labs drawn through the [facility] ER. On 08/02/25, the patient's quant was 264, on 08/05/25 it was 274, on 08/12/2025 it was 409, on 08/19/2025 it is 576. The patient was seen by Dr. Zhu in clinic 08/16/2025, and he ordered a repeat quantitative hCG. He was assuming this was a missed miscarriage. Today, the patient is having more pain and and ultrasound reveals some free fluid in her abdomen with some type of complex mass in her left adnexa measuring approximately 4.4 x 3.6 x 3.7 cm. Her hemoglobin is stable at 10.1. As patient is having increasing abdominal pain, now with free fluid in her abdomen, and some type of complex mass near her left adnexa, the decision is made to proceed with laparoscopy, possible unilateral salpingoectomy versus ovarian cystectomy. Possible laparotomy. Patient is consented for the procedure/ She underwent laparoscopic lysis of adhesions and R salpingectomy for R ectopic on 08/20/2025 I rounded the patient approximately 9:00 in the morning on postoperative day #2, patient is resting comfortably in bed. She states that she has passed flatus she is ambulating she passed 1 clot the size of a nickel. She is voiding. No fevers no chills. She is ready for discharge. Status at Discharge Cognitive/behavioral status at discharge: Patient is alert and orient x 3 in no apparent distress Functional status at discharge: independent ambulation Overall status at discharge: patient is progressing back to baseline Time Spent with Patient Time attestation: Total time spent providing and/or coordinating discharge services: Time spent: Less than 30 minutes Specific discharge activities: Pelvic rest x 2 weeks. No heavy lifting intercourse or heavy exercise x 2 weeks. No bathtubs x 2 weeks. 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 Temp Pulse Resp BP Pulse Ox O2 Del Method O2 Flow Rate 97.4 F 81 16 128/79 96 Room Air 2 08/22/25 08:00 08/22/25 08:00 08/22/25 08:00 08/22/25 08:00 08/22/25 08:00 08/22/25 08:00 08/20/25 15:10 Narrative Exam Patient is alert and orient x 3 no apparent distress Abdomen is soft, slightly distended, all laparoscopic incisions are healing nicely Extremities show no significant edema or erythema Constitutional Constitutional: no acute distress Discharge Plan Plan Patient Disposition: HOME (Self Care) Disposition Comment: Stable Patient condition on transfer: Stable Health Concerns: Patient counseled repeat #5 could be difficult secondary TO adhesions. She was counseled about a 10 to 25% chance of a another ectopic in her left tube. Prescriptions/Referrals Prescriptions/Med Rec: New hydrocodone-acetaminophen 5-325 mg tablet 1 tab PO Q8H MDD 3 Qty: 10 0RF ibuprofen 600 mg tablet 600 mg PO Q8H PRN (Reason: pain) Qty: 30 0RF doxycycline hyclate 100 mg tablet 100 mg PO BID 7 Days Qty: 14 0RF ondansetron 4 mg tablet,disintegrating 4 mg PO Q6H PRN (Reason: nausea and vomiting) Qty: 14 0RF Referrals: Ankush Boston MD [Primary Care Provider, Family Practice] [facility] ([facility]),Shonna Oden MD [Physician, PEDIGREE RESEARCHER] Patient/Caregiver Discharge Instructions Discharge Activity: activity as tolerated Other Discharge Activity Instructions:: pelvic rest x 2 weeks / follow up at [facility] 09/02 or 09/06 to see Shailesh Grover. Call for appointment Other Discharge Diet Instructions: regular Education Materials: Abdominal Pain, Ectopic , After Laparoscopic Treatment ... Print Language: Lithuanian Activity Restrictions/Additional Instructions: Pelvic rest x 2 weeks. No heavy lifting x 2 weeks. No heavy exercise x 2 weeks. Call with fevers 100.4 degrees or higher severe nausea and vomiting or increasing abdominal distention. Stand Alone Forms: Daphnie Award Info., Patient Portal Info Letter Discharge Order Discharge Orders: Discharge (Routine); Ordered 08/21/25 Ordered By: Aidee Aleman (2) Ectopic Qualifiers: Location of ectopic : unspecified location Intrauterine status: without intrauterine Qualified Code(s): O00.90 - Unspecified ectopic without intrauterine
== END 2025-08-22 11:49 | disposition home or self-care (01) | DRG 547 ==
LOC: SERX 08-20 06:14 → SERHOLD 08-20 06:24 → S3SX 08-20 09:34
PROVIDERS: Obstetrics & Gynecology; Physician Assistant; Admitting Provider Obstetrics & Gynecology; Emergency Provider Emergency Medicine; PCP Family Medicine; Visit Provider Obstetrics & Gynecology
PROC: (CPT 49320; principal; 2025-08-20 14:00)
DX: O00.101 Right tubal pregnancy without intrauterine pregnancy (principal); N83.292 Other ovarian cyst, left side; N85.6 Intrauterine synechiae; Z98.891 History of uterine scar from previous surgery; K66.0 Peritoneal adhesions (postprocedural) (postinfection)
CPT/HCPCS: 36415; 76817; 80053; 81001; 84702; 85025; 86850; 86900; 86901; A4217; A4649; J0131; J0690; J1100; J1171; J1885; J2250; J2270; J2371; J2405; J2704; J3010; J3490; J7120; A9270

== ENCOUNTER 2025-08-30 14:26 | Outpatient (AMB) | payer MEDICAID, SELFPAY ==
[2025-08-30 14:35] VITALS: BP 146/81; PULSE 113; RESP 18; TEMP 36.2; O2SAT 98
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
== END 2025-08-30 15:19 | disposition home or self-care (01) ==
LOC: HODSOBC 14:26
PROVIDERS: PCP Family Medicine; Referring Provider Family Medicine; Supervising Provider Obstetrics & Gynecology; Visit Provider Obstetrics & Gynecology
DX: Z48.816 Encounter for surgical aftercare following surgery on the genitourinary system (principal); Z90.79 Acquired absence of other genital organ(s); Z87.59 Personal history of other complications of pregnancy, childbirth and the puerperium; Z30.09 Encounter for other general counseling and advice on contraception
CPT/HCPCS: 99213; G0463